=== PATIENT | male | born 1965 | race Caucasian/White ===

== ENCOUNTER 2017-09-22 10:10 | Emergency (ER) | payer OTHER | END 2017-09-22 11:35 | disposition other institution (70) | LOC: ED 10:10 | DX: Z02.89 Encounter for other administrative examinations (principal) ==

== ENCOUNTER 2017-09-22 10:10 | Emergency (ER) | payer OTHER ==
[~2017-09-22] VITALS: Ht 177.8 cm; Wt 90.7 kg
[2017-09-22 10:23] VITALS: BP 144/95; Ht 177.8 cm; Wt 90.7 kg
== END 2017-09-22 11:35 | disposition other institution (70) ==
LOC: ED 10:10
DX: Z02.89 Encounter for other administrative examinations (principal); I10 Essential (primary) hypertension; E11.9 Type 2 diabetes mellitus without complications; M06.9 Rheumatoid arthritis, unspecified